=== PATIENT | female | born 1970 | race Hispanic/Latino ===

== ENCOUNTER 2018-05-18 11:49 | Observation (INO) | payer SELFPAY ==
--- NOTE | 2018-05-18 12:41 | RAD ---
PORTABLE CHEST 1 VIEW: Date: 05/18/18 Time: 1227 hours HISTORY: Chest pain. FINDINGS: The heart size is borderline. The lungs are expanded without focal areas of consolidation, pneumothor aces, giacomo pulmonary edema, or pleural effusions. IMPRESSION: No acute process. POS: OFF
[2018-05-18 12:47] LABS: #Basophils 0.1 thou/uL (0.0-0.2); #Eosinphils 0.3 thou/uL (0.0-0.7); #Lymphocytes 2.9 thou/uL (1.20-3.40); #Monocytes 0.6 thou/uL (0.11-0.59); #Neutrophils 5.6 thou/uL (1.40-6.50); %Basophils 0.7 % (0.0-1.0); %Eosinophils 3.6 % (0.0-10.0); %Lymphocytes 30.5 % (21.0-51.0); %Monocytes 6.3 % (0.0-10.0); %Neutrophils 58.9 % (42.0-75.0); Hemoglobin 14.2 g/dL (12.0-16.0); Mean Corpuscular Hemoglobin 30.8 pg (27.0-31.0); Mean Platelet Volume 7.8 fL (7.4-10.4); Platelet Count 262 thou/uL (130-400); Red Blood Cell (RBC) Count 4.61 mill/uL (4.20-5.40); White Blood Cell (WBC) Count 9.5 thou/uL (4.8-10.8)
[2018-05-18 13:10] LABS: ALT (SGPT) 34 U/L (8-55); AST (SGOT) 23 U/L (5-34); Albumin 4.1 g/dL (3.5-5.0); Alkaline Phosphatase 93 U/L (40-150); Anion Gap 9 mmol/L (10-20); BUN (Urea Nitrogen) 15 mg/dL (7.0-18.7); Bilirubin, Total 0.4 mg/dL (0.2-1.2); CK (CPK) 105 U/L (29-168); Calc. Creatinine Clearance 0 mL/min (70-130); Calcium 9.5 mg/dL (7.8-10.44); Carbon Dioxide 24 mmol/L (22-29); Chloride 109 mmol/L (98-107); Estimated GFR-MDRD 88; Globulin 2.9 g/dL (2.4-3.5); Glucose 93 mg/dL (70-105); Potassium 4.3 mmol/L (3.5-5.1); Sodium 138 mmol/L (136-145)
[2018-05-18 13:18] LABS: CKMB 1.1 ng/mL (0-6.6); Troponin I Less than 0.010 ng/mL (< 0.028)
--- NOTE | 2018-05-18 14:31 | HP ---
DATE OF ADMISSION: 05/18/2018 PRIMARY CARE PHYSICIAN: Mary Kwon Family Nurse Practitioner. REASON FOR ADMISSION: Chest pain. HISTORY OF PRESENT ILLNESS: A 47-year-old female with a history of hypertension and gastroe sophageal reflux disease who was sent by primary care physician for evaluation of chest pain. The selena stone reports that one week ago, she had a chest pain, which was left-sided in location, radiated to left upper extremity, dull ache in nature, lasted for a few minutes and subsided by itself. She did not have any further chest pain up until last night around 4:00 in the morning. She woke up with the chest pain, which was almost similar in nature, left-sided in location, dull aching in nature, 5/10 in intensity, associated with radiation of pain to the left upper extremity. She denies any associat ed nausea, vomiting, diaphoresis or shortness of breath. She denies any palpitation. Pain lasted fo r about 2 minutes. This type of pain she had this morning about 2 times and subsequently she was fee ling sore in her chest. She went to see primary care physician and primary care physician sent her t o emergency room. The patient became pain free when paramedics gave her nitroglycerin sublingual and Zofran. The patient took aspirin and lisinopril prior to coming to the hospital. Currently, the patient is chest pain free. She did not have any cardiac workup in the past. She den ies any exertion related chest pain, palpitation, dizziness. She denies any relation of chest discom fort with food, respiration or activity. She denies any fever, chills, cough. She denies any orthop hima, PND, leg swelling. She denies any calf tenderness. She denies any immobilization or recent tra kayleen. She denies any pleurisy. She denies any cough, syncope. REVIEW OF SYSTEMS: The following complete review of systems was negative, unless otherwise mention ed in the HPI or below: Constitutional: Weight loss or gain, ability to conduct usual activities. Skin: Rash, itching. Eyes: Double vision, pain. ENT/Mouth: Nose bleeding, neck stiffness, pain, tenderness. Cardiovascular: Palpitations, dyspnea on exertion, orthopnea. Respiratory: Shortness of breath, wheezing, cough, hemoptysis, fever or night sweats. Gastrointestinal: Poor appetite, abd ominal pain, heartburn, nausea, vomiting, constipation, or diarrhea. Genitourinary: Urgency, freque ncy, dysuria, nocturia. Musculoskeletal: Pain, swelling. Neurologic/Psychiatric: Anxiety, depress ion. Allergy/Immunologic: Skin rash, bleeding tendency. Please see my HPI for pertinent positive a nd negative. All other review of systems reviewed and negative except as mentioned in the HPI. ALLERGIES: No known drug allergy. CURRENT HOME MEDICATIONS: Nexium 40 mg p.o. daily, lisinopril 5 mg p.o. daily. PAST MEDICAL HISTORY: Hypertension, gastroesophageal reflux disease. PAST SURGICAL HISTORY: Cholecystectomy, x2, tubal ligation. PAST PSYCHIATRIC HISTORY: Anxiety and depression, not on any medicine. SOCIAL HISTORY: The patient drinks alcohol socially. She denies any smoking. She denies any other illicit drug abuse. She is working in [employer] in [place], [place]. FAMILY HISTORY: Positive for heart disease to mother. No strong family history of stroke or cancer. EMERGENCY ROOM COURSE: The patient was given aspirin and nitrospray prior to arrival to the emergenc y room by paramedics. The patient took lisinopril by herself. She was also given Zofran by paramedi . PHYSICAL EXAMINATION: VITAL SIGNS: On arrival, blood pressure 143/90, pulse 59, respiratory rate 18, temperature 98.4, sat uration 97% on room air, weight 63.5 kilograms. GENERAL: The patient is currently alert, awake, in no obvious acute distress. HEAD: Normocephalic, atraumatic. EYES: Pupils round and reactive to light. Extraocular muscle intact. ENT: Oropharynx within normal limit. Moist mucous membranes. No oral lesion, no pharyngeal erythem a, no exudate. NECK: Supple, no JVD, no thyromegaly, no carotid bruit, no jugular venous distention. LUNGS: Clear to auscultation without any rhonchi or rales. CARDIAC: S1, S2 regular. No murmur, no gallop, no rub. ABDOMEN: Soft, bowel sounds present, nontender, nondistended. No organomegaly, no mass, no suprapub ic tenderness. BACK: Unremarkable. No CVA tenderness. EXTREMITIES: Upper extremities, passive movement of all joints are normal. Lower extremities, no ed edgar. Good distal pulsation. No calf tenderness. SKIN: No skin rash. HEMATOLOGICAL: No lymphadenopathy. NEUROLOGIC: Nonfocal examination. Speech normal. SIGNIFICANT LABORATORY DATA: EKG showing sinus bradycardia, nonspecific ST-T changes. CBC, WBC 9.5, hemoglobin 14.2, platelet 262,000. BMP, sodium 138, potassium 4.3, chloride 109, carbon dioxide 24, anion gap 9, BUN 15, creatinine 0.72. Glucose 93, calcium 9.5. LFT, AST 23, ALT 34, alkaline phosp hatase 93, albumin 4.1. CK 105. CK-MB 1.1. Troponin I less than 0.010. Chest x-ray based on my re view, no acute cardiopulmonary process. ASSESSMENT AND PLAN: 1. Acute and recurrent chest pain. Currently, cardiac enzymes are negative. Her EKG is nonspecific . Her description of chest pain is also atypical. She has low probability of coronary artery diseas e based on her risk factor profile. At this point, the patient will be observed on telemetry floor. We will do serial cardiac enzymes x3 to rule out acute coronary syndrome. Meanwhile, we will contin ue with aspirin 325 mg p.o. daily. We will check lipid profile for risk stratification. Nitroglycer in sublingual p.r.n. basis. If blood pressure permits, then we will continue with her home medicatio n of Lisinopril 5 mg p.o. daily. We will continue Protonix 40 mg p.o. daily. Tomorrow morning, we w ill keep her n.p.o. and perform exercise Cardiolite stress test for diagnostic reasons. Healthy life style measures discussed with the patient. 2. Gastroesophageal reflux disease. We will continue Protonix 40 mg p.o. daily. 3. Hypertension. We will continue lisinopril 5 mg p.o. daily. 4. Deep venous thrombosis prophylaxis not needed because we are expecting discharge in 24 hours. 5. Gastrointestinal prophylaxis, Protonix 40 mg p.o. daily. CODE STATUS: The patient is full code. The patient does not have any surrogate decision maker. Disposition plan based on clinical course and stress test result. Plan of care discussed with the selena stone in detail.
[2018-05-18 16:44] LABS: Troponin I Less than 0.010 ng/mL (< 0.028)
[2018-05-18] MEDS ORDERED: Ondansetron ODT 4 MG TAB SL PRN (18:06)
[2018-05-18] MEDS ORDERED: Acetaminophen 325 MG TAB PO PRN ×2 (18:06→19:30)
[2018-05-18] MEDS ORDERED: Ondansetron HCl/PF 4 MG/2 ML Vial IVP PRN ×2 (18:06→19:30)
[2018-05-18 19:19] LABS: Troponin I Less than 0.010 ng/mL (< 0.028)
[2018-05-18] MEDS ORDERED: Artificial Tears 18 DROP/0.9 ML EA EYE PRN (19:30)
[2018-05-18] MEDS ORDERED: Zolpidem Tartrate 5 MG TAB PO PRN (19:30)
[2018-05-18] MEDS ORDERED: Diabetic Tussin 200 MG/10 ML UDCUP PO PRN (19:30)
[2018-05-18] MEDS ORDERED: Chloraseptic Spray 180 ml Bottle PO PRN (19:30)
[2018-05-18] MEDS ORDERED: Loratadine 10 MG TAB PO PRN (19:30)
[2018-05-18] MEDS ORDERED: Loperamide HCl 2 MG CAP PO PRN (19:30)
[2018-05-18] MEDS ORDERED: Nitroglycerin 0.4 MG TAB (25 Tab Bottle) SL PRN (19:30)
[2018-05-18] MEDS ORDERED: hydrALAZINE 20 MG/ML VIAL SLOW IVP PRN (19:30)
[2018-05-18] MEDS ORDERED: Senokot 8.6 MG TAB PO PRN (19:30)
[2018-05-18] MEDS ORDERED: Ondansetron ODT 4 MG TAB PO PRN (19:30)
[2018-05-18] MEDS ORDERED: Milk Of Magnesia 30 ML UDCUP PO PRN (19:30)
[2018-05-18] MEDS ORDERED: Sodium Chloride 0.65% Nasal 44 ML BOT EA NARE PRN (19:30)
[2018-05-18] MEDS ORDERED: HYDROcodone/Acetaminophen 5/325 mg Tablet PO PRN (19:30)
[2018-05-18] MEDS ORDERED: Eucerin (Mineral Oil/Petrolatum,White) 30 gm Jar TOP PRN (19:30)
[2018-05-18] MEDS ORDERED: Mag-Al 1200 mg/1200 mg/30 ML UDCUP PO PRN (19:30)
[2018-05-18 19:37] VITALS: BMI 28.3
[2018-05-18 21:37] LABS: CKMB 0.8 ng/mL (0-6.6); Troponin I Less than 0.010 ng/mL (< 0.028)
[2018-05-19 00:54] LABS: CKMB 0.7 ng/mL (0-6.6); Troponin I Less than 0.010 ng/mL (< 0.028)
[2018-05-19 03:56] LABS: Cardiac Risk 2.6 (Less than 4.5)
[2018-05-19 08:15] VITALS: TEMP 98.3
[2018-05-19] MEDS ORDERED: Aspirin 325 MG TAB PO SCH (09:00)
[2018-05-19] MEDS ORDERED: Lisinopril 5 MG TAB PO SCH (09:00)
--- NOTE | 2018-05-19 10:10 | DIS ---
DATE OF ADMISSION: 05/18/2018 DATE OF DISCHARGE: 05/19/2018 PRIMARY CARE PHYSICIAN: Mary Kwon. DISCHARGE DISPOSITION: Home. PRIMARY DISCHARGE DIAGNOSIS: Chest pain, ruled out acute coronary syndrome. SECONDARY DISCHARGE DIAGNOSES: Gastroesophageal reflux disease, hypertension. PRIMARY PROCEDURE/OPERATION: None. RADIOLOGICAL INVESTIGATION: Chest x-ray normal. Stress test will be done, result is pending. SIGNIFICANT LABORATORY DATA: WBC 9.5, hemoglobin 14.2, platelet 262. Cardiac enzymes negative x5. Sodium 138, creatinine 0.72. LFT normal. LDL 62. DISCHARGE MEDICATIONS: Nexium 40 mg p.o. daily, lisinopril 10 mg p.o. daily. CONTRAINDICATIONS: None. CODE STATUS: FULL CODE. INPATIENT CONSULTANTS: None. ALLERGIES: No known drug allergy. DISCHARGE PLAN: Post hospital, the patient will follow up with primary care physician. HOSPITAL COURSE: A 47-year-old female who was admitted for chest pain. The patient was having chest pain for a couple of days and day before night, she was having pain and that is why she went to see primary care physician. She was sent to ER. Her electrocardiogram was unremarkable. Her chest x-ray was normal. Routine blood test including cardiac enzyme remained negative. Telemetry remained unremarkable. We are doing stress test for diagnostic reason. If stress test is normal, then she will be discharged home. She will continue all previous medications. Her lipid profile is also within normal limits. Healthy lifestyle measures discussed with the patient. PHYSICAL EXAMINATION: The patient is seen and examined at bedside today. She does not have any complaints. VITAL SIGNS: Currently, temperature 98.3, pulse 66, respiratory rate 15, saturation 97%, blood pressure 105/65, weight 139 pounds. GENERAL: The patient is currently alert, awake, no acute distress. LUNGS: Clear to auscultation without any rhonchi. CARDIAC: S1, S2 regular without any murmur. ABDOMEN: Soft and benign without any tenderness. EXTREMITIES: No edema. NEUROLOGIC: Nonfocal examination. STRESS TEST IS NORMAL AND I DISCUSSED TEST RESULT WITH PT RAVINDER
[2018-05-19 13:01] VITALS: BP 123/76
--- NOTE | 2018-05-19 14:53 | NM ---
MYOCARDIAL PERFUSION SCAN WITH SPECT IMAGING: HISTORY: Chest pain. TECHNIQUE/FINDINGS: Examination is performed using 30 mCi 99m-technetium sestamibi on the stress and 9.9 on the resting i mages. This shows a fairly normal distribution of radiopharmaceutical. No signs of ischemia or scar. WALL MOTION: There is symmetric contractility to the ventricle. LEFT VENTRICULAR EJECTION FRACTION: The calculated left ventricular ejection fraction is 75%. IMPRESSION: Unremarkable myocardial perfusion scan. POS: SANGEETA
== END 2018-05-19 15:46 | disposition home or self-care (01) ==
LOC: ERS 11:49 → 2SW 17:32
PROVIDERS: ADMIT Internal Medicine; ATTEND Internal Medicine
DX: R07.9 Chest pain, unspecified (principal); K21.9 Gastro-esophageal reflux disease without esophagitis; I10 Essential (primary) hypertension; Z79.899 Other long term (current) drug therapy
CPT/HCPCS: 36415; 71045; 78452; 80053; 80061; 82550; 82553; 84484; 85025; 93005; 93017; A9500; G0378